=== PATIENT | female | born 1955 | race Caucasian/White ===

== ENCOUNTER 2024-04-30 11:58 | Inpatient (IN) | payer MEDICARE, MEDICAID ==
[~2024-04-30] VITALS: Ht 165.1 cm; Wt 67.8 kg
[2024-04-30 13:13] LABS: COVID AG,FIA SOURCE NASAL SWAB
[2024-04-30 13:27] LABS: BASOPHILS % (AUTO) 0.5 % (0.0-2.0); EOSINOPHILS % (AUTO) 2.6 % (1.0-6.0); HEMATOCRIT 39.3 % (36-46); HEMOGLOBIN 12.9 g/dL (12.0-16.0); LYMPHOCYTES # (AUTO) 2.3 K/uL (1.0-4.8); LYMPHOCYTES % (AUTO) 27.2 % (22.0-44.0); MEAN CORPUSCULAR HEMOGLOBIN 27.8 pg (26.0-34.0); MEAN CORPUSCULAR HGB CONC 32.8 G/dL (31.0-37.0); MEAN CORPUSCULAR VOLUME 85 fL (80-100); MONOCYTES # (AUTO) 0.8 K/uL (0.1-1.0); MONOCYTES % (AUTO) 9.7 % (2.0-9.0); NEUTROPHILS # (AUTO) 5.1 K/uL (1.8-7.7); PLATELET COUNT (AUTO) 283 K/uL (150-450); RED BLOOD CELL COUNT(AUTO) 4.65 MIL/uL (4.00-5.20); WHITE BLOOD COUNT (AUTO) 8.5 K/uL (4.5-11.0)
[2024-04-30 13:32] LABS: AMPHET/METH SCREEN,URINE NEGATIVE (NEGATIVE); BARBITURATE SCREEN, URINE NEGATIVE (NEGATIVE); BENZODIAZEPINES SCREEN,URINE NEGATIVE (NEGATIVE); CANNABINOID SCREEN,URINE NEGATIVE (NEGATIVE); COCAINE SCREEN,URINE NEGATIVE (NEGATIVE); METHADONE SCREEN, URINE NEGATIVE (NEGATIVE); OPIATE SCREEN,URINE POSITIVE (NEGATIVE); PHENCYCLIDINE SCREEN,URINE NEGATIVE (NEGATIVE)
[2024-04-30 13:33] LABS: SARS-COV2 (COVID) ANTIGEN,FIA Negative (Negative)
[2024-04-30 13:36] LABS: ALCOHOL, URINE DRUG SCREEN NEGATIVE (NEGATIVE)
[2024-04-30 13:43] LABS: APPEARANCE,URINE CLEAR (CLEAR); BILIRUBIN,URINE NEGATIVE (NEGATIVE); COLOR,URINE LIGHT YELLOW (YELLOW); GLUCOSE, URINE (UA) NEGATIVE (NEGATIVE); KETONES,URINE NEGATIVE (NEGATIVE); LEUKOCYTE ESTERASE ,URINE TRACE (NEGATIVE); NITRATE,URINE NEGATIVE (NEGATIVE); OCCULT BLOOD,URINE NEGATIVE (NEGATIVE); PROTEIN,URINE NEGATIVE (NEGATIVE); SPECIFIC GRAVITIY, URINE 1.011 (1.003-1.030); UROBILINOGEN,URINE <=1.0 mg/dL (<=1.0)
[2024-04-30 13:47] LABS: ANION GAP 8 mmol/L (8-16); CALCIUM, TOTAL 9.1 mg/dL (8.8-10.5); CARBON DIOXIDE 29 mmol/L (22-29); CHLORIDE 97 mmol/L (98-107); CREATININE 0.73 mg/dL (0.60-1.30); GLOMERULAR FILTR. RATE CALC > 60 mL/min (>60); GLUCOSE,RANDOM 101 mg/dL (70-110); POTASSIUM 4.5 mmol/L (3.5-5.1); SODIUM SERUM 134 mmol/L (136-145); UREA NITROGEN, BLOOD 9 mg/dL (7-18)
[2024-04-30 13:49] LABS: BACTERIA,URINE None Seen /HPF (None Seen); RBC,URINE 0-2 /HPF (0-2); SQUAMOUS EPITHELIAL CELL,UR Few /LPF (None Seen); WBC,URINE 0-2 /HPF (0-5)
[2024-04-30 14:33] LABS: ALCOHOL, BLOOD (SERUM) < 3 mg/dL (0-10)
[2024-04-30] MEDS: HYDROCODONE/ACETAMINOPHEN 5-325 MG TABLET PO ONE (15:00)
[2024-04-30] MEDS: LORazepam 1 MG TABLET PO ONE (15:00)
[2024-04-30] MEDS ORDERED: ACETAMINOPHEN 325 MG TABLET PO PRN (16:30)
[2024-04-30] MEDS ORDERED: MAGNESIUM HYDROXIDE SUSPENSION 30 ML UDCUP PO PRN (16:30)
[2024-04-30] MEDS ORDERED: LOPERAMIDE HCL 2 MG CAPSULE PO PRN (16:30)
[2024-04-30] MEDS ORDERED: HALOPERIDOL 5 MG TABLET PO PRN (16:30)
[2024-04-30] MEDS ORDERED: MAG HYDROX/ALUMINUM HYD/SIMETH ES 30 ML SUSPENSION UDCUP PO PRN (16:30)
[2024-04-30] MEDS: METHOCARBAMOL 500 MG TABLET PO ONE (17:43)
[2024-04-30] MEDS: ZOLPIDEM TARTRATE 10 MG TABLET PO PRN (19:25)
[2024-04-30] MEDS: LORazepam 2 MG TABLET PO PRN (19:25)
[2024-04-30 23:04] VITALS: BP 111/76; PULSE 80; RESP 18; TEMP 97.8; O2SAT 96
[2024-05-01] MEDS ORDERED: INFLUENZA VIRUS VACCINE TVS (6MO+) 2024-25/PF 45 MCG/0.5 ML SYRINGE IM. ONE (01:45)
[2024-05-01] MEDS ORDERED: PNEUMOCOCCAL VACCINE POLYVALENT 0.5 ML SYRINGE [PPSV23] IM. ONE (06:30)
[2024-05-01] MEDS ORDERED: CloNIDine HCL 0.1 MG TABLET PO PRN (10:15)
[2024-05-01] MEDS ORDERED: DOCUSATE SODIUM 100 MG CAPSULE PO PRN (10:15)
[2024-05-01] MEDS ORDERED: MAGNESIUM HYDROXIDE SUSPENSION 30 ML UDCUP PO PRN (10:15)
[2024-05-01] MEDS ORDERED: PETROLATUM,WHITE 28 GM JELLY TP PRN (10:15)
[2024-05-01] MEDS ORDERED: GuaiFENesin/D-METHORPHAN [SUGAR-FREE] 200-20MG/10 ML SYRUP UDCUP PO PRN (10:15)
[2024-05-01] MEDS ORDERED: ALBUTEROL SULFATE HFA 90 MCG/PUFF 8 GM INHALER IH PRN (10:15)
[2024-05-01] MEDS ORDERED: MAG HYDROX/ALUMINUM HYD/SIMETH ES 30 ML SUSPENSION UDCUP PO PRN (10:15)
[2024-05-01] MEDS ORDERED: ONDANSETRON 4 MG TABLET PO PRN (10:15)
[2024-05-01] MEDS ORDERED: ACETAMINOPHEN 325 MG TABLET PO PRN (10:15)
[2024-05-01 10:46] VITALS: BP 145/88; PULSE 88; RESP 19; TEMP 97; O2SAT 97
[2024-05-01] MEDS: ARIPiprazole 5 MG TABLET PO SCH (12:41)
[2024-05-01] MEDS: SERTRALINE HCL 100 MG TABLET PO SCH (12:41)
[2024-05-01] MEDS: GABAPENTIN 300 MG CAPSULE PO SCH (12:41)
[2024-05-01] MEDS: PROPRANOLOL HCL 10 MG TABLET PO SCH (13:50)
[2024-05-01] MEDS: AMPHETAMINE/DEXTROAMPHETAMINE 10 MG TABLET PO SCH (13:52)
[2024-05-01] MEDS: BENZTROPINE MESYLATE 1 MG TABLET PO SCH (21:00)
[2024-05-01] MEDS: OLANZapine 5 MG TABLET PO SCH (21:00)
[2024-05-01 21:13] VITALS: BP 117/79; PULSE 85; RESP 18; TEMP 97.9; O2SAT 97
[2024-05-01] MEDS: TraZODone HCL 100 MG TABLET PO SCH (21:49)
[2024-05-02 09:11] VITALS: BP 113/75; PULSE 83; RESP 17; TEMP 97.7; O2SAT 98
[2024-05-02 09:32] LABS: HEMOGLOBIN A1C 5.9 % (3.8-5.6)
[2024-05-02 09:40] LABS: CHOL/HDL RATIO 3.1 (3.9-5.7); THYROID STIMULATING HORMONE 0.29 uIU/mL (0.36-3.74)
[2024-05-02] MEDS: AMANTADINE HCL 100 MG CAPSULE PO SCH (21:00)
[2024-05-02 21:14] VITALS: BP 89/58; PULSE 98; RESP 18; TEMP 97.5; O2SAT 96
[2024-05-03 08:51] VITALS: BP 127/98; PULSE 90; RESP 17; TEMP 98; O2SAT 97
[2024-05-03] MEDS: PANTOPRAZOLE SODIUM 40 MG DR TABLET PO SCH (08:56)
[2024-05-03] MEDS: LOPERAMIDE HCL 2 MG CAPSULE PO PRN (08:56)
[2024-05-03] MEDS: HYDROCODONE/ACETAMINOPHEN 5-325 MG TABLET PO PRN (08:56)
[2024-05-03] MEDS: NICOTINE 14 MG/24 HOUR PATCH TD PRN (09:02)
[2024-05-03] MEDS: NICOTINE POLACRILEX 2 MG LOZENGE PO PRN (11:13)
[2024-05-03 20:24] VITALS: BP 104/77; PULSE 83; RESP 18; TEMP 97.1; O2SAT 98
[2024-05-04 00:30] VITALS: BP 110/75; PULSE 78; RESP 18; TEMP 97.6; O2SAT 97
[2024-05-04 01:34] VITALS: RESP 18
[2024-05-04 12:44] VITALS: RESP 17; TEMP 98
[2024-05-04 13:44] VITALS: RESP 17; TEMP 98
== END 2024-05-04 13:45 | DRG 885 ==
LOC: EMS 11:58 → 3EX 22:38
PROVIDERS: ADMIT Psychiatry & Neurology Psychiatry; ATTEND Psychiatry & Neurology Psychiatry
PROC: GZ56ZZZ Individual Psychotherapy, Supportive (ICD-10-PCS; principal; 2024-05-01)
PROC: GZ52ZZZ Individual Psychotherapy, Cognitive (ICD-10-PCS; 2024-05-01)
PROC: GZHZZZZ Group Psychotherapy (ICD-10-PCS; 2024-05-01)
DX: F25.1 Schizoaffective disorder, depressive type (principal); R45.851 Suicidal ideations; F31.9 Bipolar disorder, unspecified; I10 Essential (primary) hypertension; Z20.822 Contact with and (suspected) exposure to COVID-19; F90.9 Attention-deficit hyperactivity disorder, unspecified type; K21.9 Gastro-esophageal reflux disease without esophagitis; F41.9 Anxiety disorder, unspecified; Z88.0 Allergy status to penicillin; Z88.8 Allergy status to other drugs, medicaments and biological substances; Z79.899 Other long term (current) drug therapy
CPT/HCPCS: 80048; 80061; 80307; 81001; 83036; 84443; 85025; 87081; 99285; G0378; G0480

== ENCOUNTER 2024-05-25 13:21 | Inpatient (IN) | payer MEDICARE, MEDICAID ==
[~2024-05-25] VITALS: Ht 165.1 cm; Wt 65.6 kg
[2024-05-25 14:09] LABS: BASOPHILS % (AUTO) 0.5 % (0.0-2.0); EOSINOPHILS % (AUTO) 1.5 % (1.0-6.0); HEMATOCRIT 41.2 % (36-46); HEMOGLOBIN 13.6 g/dL (12.0-16.0); LYMPHOCYTES # (AUTO) 2.2 K/uL (1.0-4.8); LYMPHOCYTES % (AUTO) 29.4 % (22.0-44.0); MEAN CORPUSCULAR HEMOGLOBIN 27.9 pg (26.0-34.0); MEAN CORPUSCULAR HGB CONC 33.1 G/dL (31.0-37.0); MEAN CORPUSCULAR VOLUME 84 fL (80-100); MONOCYTES # (AUTO) 0.8 K/uL (0.1-1.0); MONOCYTES % (AUTO) 11.2 % (2.0-9.0); NEUTROPHILS # (AUTO) 4.3 K/uL (1.8-7.7); NEUTROPHILS % (AUTO) 57.4 % (40.0-70.0); PLATELET COUNT (AUTO) 321 K/uL (150-450); RED BLOOD CELL COUNT(AUTO) 4.89 MIL/uL (4.00-5.20); RED CELL DISTRIBUTION WIDTH 14.2 % (11.5-14.5); WHITE BLOOD COUNT (AUTO) 7.4 K/uL (4.5-11.0)
[2024-05-25 14:19] LABS: ANION GAP 9 mmol/L (8-16); CALCIUM, TOTAL 9.9 mg/dL (8.8-10.5); CARBON DIOXIDE 27 mmol/L (22-29); CHLORIDE 99 mmol/L (98-107); CREATININE 0.72 mg/dL (0.60-1.30); GLOMERULAR FILTR. RATE CALC > 60 mL/min (>60); GLUCOSE,RANDOM 101 mg/dL (70-110); POTASSIUM 4.4 mmol/L (3.5-5.1); SODIUM SERUM 135 mmol/L (136-145); UREA NITROGEN, BLOOD 9 mg/dL (7-18)
[2024-05-25] MEDS: LORazepam 1 MG TABLET PO ONE (14:19)
[2024-05-25] MEDS: HYDROCODONE/ACETAMINOPHEN 5-325 MG TABLET PO ONE (14:19)
[2024-05-25 14:40] LABS: ALCOHOL, BLOOD (SERUM) < 3 mg/dL (0-10)
[2024-05-25 14:43] LABS: COVID AG,FIA SOURCE NASAL SWAB
[2024-05-25 15:21] LABS: SARS-COV2 (COVID) ANTIGEN,FIA Negative (Negative)
[2024-05-25 19:37] LABS: ALCOHOL, URINE DRUG SCREEN NEGATIVE (NEGATIVE); AMPHET/METH SCREEN,URINE NEGATIVE (NEGATIVE); BARBITURATE SCREEN, URINE NEGATIVE (NEGATIVE); BENZODIAZEPINES SCREEN,URINE NEGATIVE (NEGATIVE); CANNABINOID SCREEN,URINE NEGATIVE (NEGATIVE); COCAINE SCREEN,URINE NEGATIVE (NEGATIVE); METHADONE SCREEN, URINE NEGATIVE (NEGATIVE); OPIATE SCREEN,URINE POSITIVE (NEGATIVE); PHENCYCLIDINE SCREEN,URINE NEGATIVE (NEGATIVE)
[2024-05-25 19:44] VITALS: O2SAT 98
[2024-05-25] MEDS ORDERED: HALOPERIDOL 5 MG TABLET PO PRN (20:15)
[2024-05-25] MEDS: LORazepam 2 MG TABLET PO PRN (21:09)
[2024-05-25] MEDS: ACETAMINOPHEN 325 MG TABLET PO ONE (21:20)
[2024-05-26] MEDS: ZOLPIDEM TARTRATE 10 MG TABLET PO PRN (00:19)
[2024-05-26 00:33] VITALS: BP 124/77; PULSE 72; RESP 16; TEMP 97.6
[2024-05-26] MEDS: INFLUENZA VIRUS VACCINE TVS (6MO+) 2024-25/PF 45 MCG/0.5 ML SYRINGE IM. ONE (01:08)
[2024-05-26] MEDS ORDERED: NICOTINE 14 MG/24 HOUR PATCH TD PRN (06:15)
[2024-05-26] MEDS ORDERED: DOCUSATE SODIUM 100 MG CAPSULE PO PRN (06:15)
[2024-05-26] MEDS ORDERED: GuaiFENesin/D-METHORPHAN [SUGAR-FREE] 200-20MG/10 ML SYRUP UDCUP PO PRN (06:15)
[2024-05-26] MEDS ORDERED: IBUPROFEN 400 MG TABLET PO PRN (06:15)
[2024-05-26] MEDS ORDERED: CloNIDine HCL 0.1 MG TABLET PO PRN (06:15)
[2024-05-26] MEDS ORDERED: ALBUTEROL SULFATE HFA 90 MCG/PUFF 8 GM INHALER IH PRN (06:15)
[2024-05-26] MEDS ORDERED: PETROLATUM,WHITE 28 GM JELLY TP PRN (06:15)
[2024-05-26] MEDS ORDERED: ONDANSETRON 4 MG TABLET PO PRN (06:15)
[2024-05-26] MEDS ORDERED: LOPERAMIDE HCL 2 MG CAPSULE PO PRN (06:15)
[2024-05-26] MEDS ORDERED: MAGNESIUM HYDROXIDE SUSPENSION 30 ML UDCUP PO PRN (06:15)
[2024-05-26 08:25] VITALS: BP 124/76; PULSE 90; RESP 18; TEMP 98; O2SAT 100
[2024-05-26] MEDS: ARIPiprazole 5 MG TABLET PO SCH (10:45)
[2024-05-26] MEDS: SERTRALINE HCL 100 MG TABLET PO SCH (10:46)
[2024-05-26 20:14] VITALS: BP 119/77; PULSE 86; RESP 18; TEMP 97.3; O2SAT 97
[2024-05-27] VITALS (8 sets, daily range): BP systolic 123–136; BP diastolic 88–98; PULSE 74–100; RESP 16–18; TEMP 96.9–98.2; O2SAT 96–98
[2024-05-27] MEDS: ACETAMINOPHEN 325 MG TABLET PO PRN (07:07)
[2024-05-27 08:17] LABS: APPEARANCE,URINE CLEAR (CLEAR); BILIRUBIN,URINE NEGATIVE (NEGATIVE); COLOR,URINE YELLOW (YELLOW); GLUCOSE, URINE (UA) NEGATIVE (NEGATIVE); KETONES,URINE NEGATIVE (NEGATIVE); LEUKOCYTE ESTERASE ,URINE NEGATIVE (NEGATIVE); NITRATE,URINE NEGATIVE (NEGATIVE); OCCULT BLOOD,URINE NEGATIVE (NEGATIVE); PH,URINE 6.5 (5.0-8.0); PH,URINE DRUG SCREEN 6.5 (5.0-8.0); PROTEIN,URINE NEGATIVE (NEGATIVE); SPECIFIC GRAVITIY, URINE 1.014 (1.003-1.030); UROBILINOGEN,URINE <=1.0 mg/dL (<=1.0)
[2024-05-27 08:31] LABS: ALCOHOL, URINE DRUG SCREEN NEGATIVE (NEGATIVE); AMPHET/METH SCREEN,URINE NEGATIVE (NEGATIVE); BARBITURATE SCREEN, URINE NEGATIVE (NEGATIVE); BENZODIAZEPINES SCREEN,URINE NEGATIVE (NEGATIVE); CANNABINOID SCREEN,URINE NEGATIVE (NEGATIVE); COCAINE SCREEN,URINE NEGATIVE (NEGATIVE); METHADONE SCREEN, URINE NEGATIVE (NEGATIVE); OPIATE SCREEN,URINE POSITIVE (NEGATIVE); PHENCYCLIDINE SCREEN,URINE NEGATIVE (NEGATIVE)
[2024-05-27] MEDS: TraMADol HCL 50 MG TABLET PO PRN (23:20)
[2024-05-28 00:20] VITALS: PULSE 73; RESP 16; TEMP 97.1
[2024-05-28 08:35] VITALS: BP 131/95; PULSE 100; RESP 18; TEMP 97.5; O2SAT 100
[2024-05-28 20:00] VITALS: BP 137/90; PULSE 93; RESP 18; TEMP 96.5; O2SAT 96
[2024-05-29] VITALS (9 sets, daily range): BP systolic 93–148; BP diastolic 70–98; PULSE 18–98; RESP 16–18; TEMP 97–97.8; O2SAT 97–98
[2024-05-30] VITALS (9 sets, daily range): BP systolic 118–129; BP diastolic 68–81; PULSE 79–83; RESP 16–18; TEMP 97.1–97.7; O2SAT 83–98
[2024-05-31] VITALS (10 sets, daily range): BP systolic 116–128; BP diastolic 72–89; PULSE 79–98; RESP 16–18; TEMP 96.6–97.5; O2SAT 95–100
[2024-06-01 04:50] VITALS: BP 129/83; PULSE 103; RESP 18; TEMP 97.6; O2SAT 98
[2024-06-01 08:08] VITALS: BP 114/78; PULSE 92; RESP 18; TEMP 97.3; O2SAT 95
[2024-06-01 12:38] VITALS: RESP 19; O2SAT 95
[2024-06-01 20:38] VITALS: BP 132/90; PULSE 102; RESP 18; TEMP 97.6; O2SAT 96
[2024-06-01 21:48] VITALS: RESP 18
[2024-06-02 08:10] VITALS: BP 120/89; PULSE 98; RESP 18; TEMP 97.3; O2SAT 94
[2024-06-02 08:55] VITALS: RESP 18
[2024-06-02 09:55] VITALS: RESP 18
[2024-06-02 17:00] VITALS: RESP 18
[2024-06-02 18:00] VITALS: RESP 18
[2024-06-02 20:22] VITALS: BP 105/75; PULSE 71; RESP 18; TEMP 97.5
[2024-06-03] VITALS (7 sets, daily range): BP systolic 109–121; BP diastolic 67–83; PULSE 81–88; RESP 16–18; TEMP 97.2–98; O2SAT 95
[2024-06-04] VITALS (9 sets, daily range): BP systolic 107–127; BP diastolic 60–81; PULSE 86–101; RESP 16–17; TEMP 97–97.6
[2024-06-04] MEDS: MAG HYDROX/ALUMINUM HYD/SIMETH ES 30 ML SUSPENSION UDCUP PO PRN (19:29)
[2024-06-05 04:41] VITALS: BP 118/73; PULSE 86; RESP 17; TEMP 97.7
[2024-06-05 09:31] VITALS: BP 119/84; PULSE 90; RESP 18; TEMP 97.9; O2SAT 100
[2024-06-05] MEDS ORDERED: ARIP5TAB37 PO (10:50)
[2024-06-05] MEDS ORDERED: SERT-440 PO (10:50)
[2024-06-05 14:34] VITALS: RESP 18
== END 2024-06-05 16:40 | disposition home or self-care (01) | DRG 885 ==
LOC: EMS 13:21 → B2X 23:05
PROVIDERS: ADMIT Psychiatry & Neurology Psychiatry; ATTEND Psychiatry & Neurology Psychiatry
PROC: GZ56ZZZ Individual Psychotherapy, Supportive (ICD-10-PCS; 2024-05-26)
PROC: GZHZZZZ Group Psychotherapy (ICD-10-PCS; principal; 2024-05-27)
PROC: GZ52ZZZ Individual Psychotherapy, Cognitive (ICD-10-PCS; 2024-05-30)
DX: F31.4 Bipolar disorder, current episode depressed, severe, without psychotic features (principal); R45.851 Suicidal ideations; E87.1 Hypo-osmolality and hyponatremia; Z20.822 Contact with and (suspected) exposure to COVID-19; F25.1 Schizoaffective disorder, depressive type; I10 Essential (primary) hypertension; K21.9 Gastro-esophageal reflux disease without esophagitis; F90.9 Attention-deficit hyperactivity disorder, unspecified type; F41.9 Anxiety disorder, unspecified; E78.5 Hyperlipidemia, unspecified; G89.29 Other chronic pain; Z88.8 Allergy status to other drugs, medicaments and biological substances; Z91.048 Other nonmedicinal substance allergy status; Z88.0 Allergy status to penicillin; Z91.148 Patient's other noncompliance with medication regimen for other reason
CPT/HCPCS: 72040; 80048; 80307; 81003; 85025; 99285; G0480